=== PATIENT | female | born 1990 | race Caucasian/White ===

== ENCOUNTER 2016-10-15 09:10 | Inpatient (IN) | payer OTHER ==
--- NOTE | ~2016-10-15 | PN ---
Unit #: [id number] #: [id number] Patient: DIMA DOTY [id number] [facility] [address] [place] [address] [id number] I MR#: [id number] NAME: DIMA DOTY ROOM: P211 Age: 26 Sex: F Admission Date: 10/15/2016 : 1990 Attending Physician: Elyse Vyas M.D. Admitting Physician: Genna Cruz PROGRESS NOTES DATE OF SERVICE: 10/20/2016 SUBJECTIVE Ms. Doty is a 26-year-old white female, who was seen today and chart was reviewed, and case was discussed with the staff. She has been anxious, withdrawn, though has not shown any agitation, irritability, and has been cooperative with treatment recommendation and has been taking medications and tolerating them fairly well with no reported side effects. MENTAL STATUS EXAMINATION A young white female, who was casually dressed with fair personal hygiene, appears to be in no acute distress or discomfort. She was awake and alert on interaction with intact orientation. Her mood was anxious with a congruent affect. Speech was slow and goal directed. The patient denies any suicidal or homicidal ideations, and also denies any auditory or visual hallucinations. Her insight and judgment remain slightly impaired. TREATMENT PLAN We will continue on current medications and treatment protocol. We will monitor her response to medications and make further adjustments as needed. Dictated by... Genna Cruz/bebol TD: 10/22/2016 07:33 JOB #: [id number] [facility] PROGRESS NOTES Page 1 of 1 X Elyse Vyas MD PROGRESS NOTE
--- NOTE | ~2016-10-15 | DS ---
Unit #: [id number] #: [id number] Patient: [facility] [id number] [facility] [address] [place] [address] [id number] I MR#: [id number] NAME: DIMA DOTY ROOM: [facility] Age: 26 Sex: F Admission Date: 10/15/2016 : 1990 Discharge Date: 10/21/2016 Attending Physician: Elyse Vyas M.D. DISCHARGE SUMMARY IDENTIFYING DATA Ms. Doty is a 26-year-old single white female who is a resident of [place], [place] and is known to us from previous encounter, was transferred to us from [facility]. DISCHARGE DIAGNOSES Psychiatric: Major depressive disorder, recurrent, moderate, without psychotic features; opioid dependence, moderate and acute withdrawals; methamphetamine dependence, moderate; cannabis dependence, moderate. Medical: None. Stressors: Moderate psychosocial stressors. HISTORY OF PRESENT ILLNESS Please see initial psychiatric evaluation for details. PAST PSYCHIATRIC HISTORY Please see initial psychiatric evaluation for details. PAST MEDICAL HISTORY Please see initial psychiatric evaluation for details. HOSPITAL COURSE The patient was admitted to the adult psychiatric and chemical dependency unit at [facility] and was oriented to the hospital environment. Routine p.r.n. medications were initiated, and she was started on the detox protocol and was closely monitored. She was taking the medications regularly and was tolerating them fairly well, though even after she came out of the detox, she was struggling with depression and anxiety, and as such, Celexa and Vistaril were given to help with depression and anxiety with good tolerability and therapeutic response followed by which, it was decided that she will be discharged home and will continue treatment on an outpatient basis. DISCHARGE MEDICATIONS Celexa 20 mg a day for depression and Vistaril 50 mg t.i.d. for anxiety. DISCHARGE CONDITION Stable. PROGNOSIS Fair. Dictated by... Unit #: [id number] #: [id number] Patient: DIMA DOTY Genna Cruz/bebol TD: 10/21/2016 20:07 JOB #: [id number] DISCHARGE SUMMARY Page 1 of 1 X Elyse Vyas MD SUMMARY
--- NOTE | ~2016-10-15 | PN ---
Unit #: [id number] #: [id number] Patient: DIMA DOTY [id number] [facility] [address] [place] [address] [id number] MR#: [id number] NAME: DIMA DOTY ROOM: [facility] Age: 26 Sex: F Admission Date: 10/15/2016 : 1990 Attending Physician: Elyse Vyas M.D. Admitting Physician: Genna Cruz PROGRESS NOTES DATE OF SERVICE 10/17/2016 DISCUSSION Ms. Doty is a 26-year-old white female with substance abuse and mood disorder who was seen today. Chart was reviewed and case was discussed with the staff. She has been anxious, withdrawn, and rather seclusive to herself. Meanwhile, she has been cooperative with the treatment recommendations and has been taking the medications and tolerating them fairly well with no reported side effects. MENTAL STATUS EXAMINATION Young white female who is casually dressed with fair personal hygiene and appears to be in no acute distress or discomfort. She was awake and alert on interaction with intact orientation. Her mood is anxious with congruent affect. Speech is slow and goal-directed. She denies any suicidal or homicidal ideations and also denies any auditory or visual hallucinations. Her insight and judgment remain slightly impaired. TREATMENT PLAN 1. We will continue her on her current medications and treatment protocol. We will monitor her response to the medications and make further adjustments as needed. 2. We will continue to follow up. Dictated by... Elyse Vyas M.D. IAA/bzg TD: 10/18/2016 07:32 JOB #: [id number] Unit #: [id number] #: [id number] Patient: DIMA DOTY PROGRESS NOTES Page 1 of 1 X Elyse Vyas MD PROGRESS NOTE
--- NOTE | ~2016-10-15 | PA ---
Unit #: [id number] #: [id number] Patient: DIMA DOTY [id number] [facility] [address] [place] [address] [id number] I MR#: [id number] NAME: DIMA DOTY ROOM: P211 Age: 26 Sex: F Admission Date: 10/15/2016 : 1990 Date of Assessment: 10/15/2016 Attending Physician: Elyse Vyas M.D. Admitting Physician: Elyse Vyas M.D. PSYCHIATRIC ASSESSMENT DATE OF SERVICE 10/15/2016. IDENTIFYING DATA Ms. Doty is a 26-year-old single white female, who is a resident of [place], [place], and is known to us from previous encounter, was transferred to us from [facility] on a voluntary basis. CHIEF COMPLAINT "I've been having thoughts of hurting myself." HISTORY OF PRESENT ILLNESS Ms. Doty is a 26-year-old white female, who took herself to [facility] Emergency Room reporting that she having thoughts of hurting herself and that she continues to have thoughts of suicide after [facility] and reports currently having suicidal thoughts and reports that she plan to use drugs to kill herself. She also reports having no access to pain pills. At this time, reports having access to muscle relaxers and sleeping pills and reports attempting suicide in the past with a most recent attempt being last year. She reports also getting assessed due to detoxing off Adderall and reports that she has an addiction to Adderall for the past couple of years and reports taking about 3 pills a day and reports yesterday being the last use of pain pills and Adderall and reports the longest time of known use being 6 months which was also a couple of years ago. She does report increasing depression, anxiety, irritability, restlessness, feelings of hopelessness and helplessness, and suicidal ideations and was unable to contract for safety and was seen to be a danger to self and others and as such, recommendation for inpatient level of care was made. SUBSTANCE ABUSE HISTORY The patient reports history of cannabis, opioids, and amphetamine abuse, and has been using most of those drugs on regular basis. PAST PSYCHIATRIC HISTORY The patient has had history of inpatient chemical dependency and psychiatric treatment at [facility] and review of the medical records indicate currently she is not taking treatment program, is not seeing a psychiatrist, not taking any psychotropic medications. PAST MEDICAL HISTORY No acute or chronic medical illnesses. Unit #: [id number] #: [id number] Patient: DIMA DOTY ALLERGIES Sulfa drugs. PERSONAL AND SOCIAL HISTORY A 26-year-old white female, who reports that she is single, unemployed, and lives by herself and has poor social support system. MENTAL STATUS EXAMINATION Young white female who was casually dressed with fair personal hygiene, appears to be in no acute distress or discomfort. She was awake and alert on interaction with intact orientation to time, place, and person. Her mood was anxious and depressed with a congruent affect. Her speech was slow and restricted in content. Her thought processes were disorganized with some looseness of associations and suicidal ideations. Her insight and judgment remain significantly impaired. DIAGNOSTIC IMPRESSION Psychiatric: Major depressive disorder, recurrent, moderate, without psychotic features; opioid dependence, moderate and acute withdrawals; amphetamine dependence, moderate; cannabis dependence, moderate. Medical: None. Stressors: Moderate psychosocial stressors. TREATMENT PLAN 1. The patient has presented with history of substance abuse and mood disorder and has been decompensating and will need inpatient hospitalization for detoxification, safety, and stabilization. We will start her on detox protocol for opioids. We also recommend considering a trial of antidepressant therapy. 2. Supportive therapy was provided to the patient. 3. Safe, structured, and nourishing environment will be provided. ESTIMATED LENGTH OF STAY 5 to 7 days. ABILITY TO HELP SELF Limited. WILLINGNESS TO HELP SELF The patient appears to be willing to help self. STRENGTHS 1. Communicative. 2. Cooperative. PROBLEMS 1. Chronic dysphoric symptoms. 2. Chronic chemical dependency. 3. Poor social support system. DISCHARGE CRITERIA This will be contingent upon the patient's ability to show resolution of her depression and anxiety and her ability to stay safe to herself, particularly after discharge from the hospital. Dictated by... Unit #: [id number] #: [id number] Patient: DIMA DOTY Genna Cruz/zoe TD: 10/16/2016 07:49 JOB #: [id number] PSYCHIATRIC ASSESSMENT Page 1 of 1 X Elyse Vyas MD PSYCHIATRIC ASSESSMENT
--- NOTE | ~2016-10-15 | HP ---
Unit #: [id number] #: [id number] Patient: DIMA CEBALLOS [id number] [place] [address] [id number] I MR#: [id number] NAME: DIMA CEBALLOS ROOM: P211 Age: 26 Sex: F Admission Date: 10/15/2016 : 1990 Attending Physician: Elyse Vyas M.D. Admitting Physician: Elyse Vyas M.D. HISTORY AND PHYSICAL HISTORY OF PRESENT ILLNESS Dima is a 26 year old admitted to [address] [place] [address] because of her polysubstance abuse which includes opioids, amphetamines and benzodiazepines. She has a history of IV drug use. PAST MEDICAL HISTORY 1. Long history of polysubstance abuse to include IV drugs. 2. History of anemia. 3. History of eclampsia. PAST SURGICAL HISTORY x2. ALLERGIES Sulfa. SOCIAL HISTORY Smokes 1 pack per day. Denies alcohol. Admits to a long history of polysubstance abuse to include IV heroin. FAMILY HISTORY Medically noncontributory. REVIEW OF SYSTEMS CONSTITUTIONAL: No fever or chills. HEENT: Denies any sore throat, ear pain or runny nose. CARDIOVASCULAR: Denies chest pain, irregular heart rhythm or palpitations. CHEST: Denies shortness of breath or cough. No hemoptysis. GASTROINTESTINAL: Denies nausea, vomiting, diarrhea or chronic constipation. ENDOCRINE: Denies history of increased thirst or urination. No recent significant weight loss or gain. GENITOURINARY: Denies dysuria, frequency, or hematuria. SKIN: Denies any rashes. HEMATOLOGIC: Denies history of increased bleeding or bruising. MUSCULOSKELETAL: Denies any hot, swollen joints. No generalized muscle pain. NEUROLOGIC: Denies problems with vision or speech. No frequent, severe headaches. No numbness, tingling or weakness in any extremities. Denies loss of bladder or bowel control. CURRENT MEDICATIONS Detox protocol. Unit #: [id number] #: [id number] Patient: DIMA CEBALLOS PHYSICAL EXAMINATION GENERAL: Alert, well-nourished, in no apparent distress. VITAL SIGNS: Blood pressure 100/70, heart rate 80, respirations 16, temperature 98.6. WEIGHT: 135. HEIGHT: 5 feet 3 inches. SKIN: Warm and dry without rash or lesion. HEENT: Normocephalic. TMs not viewed. Oral and nasal passages clear. Conjunctivae clear. PERRLA. EOMs intact. NECK: Supple without lymphadenopathy or thyromegaly. HEART: Regular rate and rhythm without murmur. LUNGS: Clear. ABDOMEN: Soft, nontender. : Not done. EXTREMITIES: No evidence of cyanosis, clubbing or edema. Moves all without focal deficit. NEUROLOGICAL: Grossly within normal limits. Cranial Nerves: II: Visual mobley are intact. III, IV AND : Extraocular movements are intact. Pupils are equal, round and reactive to light. V: Facial sensation is grossly normal. VII: Facial movements and expression are normal. VIII: Auditory acuity grossly intact. IX, X: Uvula is midline. Phonation is normal. XI: Patient shrugs shoulders and turns head normally. XII: Tongue protrudes in the midline. Sensory and Motor Function: Sensory and motor sensation is grossly normal. Motor: moves all extremities well. Coordination: Gait is normal. Deep Tendon Reflexes: Intact. IMPRESSION Psychiatric admission. RECOMMENDATIONS PSYCHIATRIC: Per psychiatrist. MEDICAL: See no contraindications to participate in facility's activities. MEDICAL PROGNOSIS Good. MEDICAL CONDITION Stable. Dictated by... Katherine Wetzel PTamiaATamia-Cristela. for Genna Gomes/leanna TD: 10/15/2016 23:12 JOB #: [id number] Unit #: [id number] #: [id number] Patient: DIMA CEBALLOS HISTORY AND PHYSICAL Page 1 of 1 X Katherine Wetzel HISTORY AND PHYSICAL
--- NOTE | ~2016-10-15 | PN ---
Unit #: [id number] #: [id number] Patient: DIMA DOTY [id number] [facility] [address] [place] [address] [id number] MR#: [id number] NAME: DIMA DOTY ROOM: P211 Age: 26 Sex: F Admission Date: 10/15/2016 : 1990 Attending Physician: Elyse Vyas M.D. Admitting Physician: Genna Cruz PROGRESS NOTES DATE OF SERVICE: 10/19/2016 SUBJECTIVE Ms. Doty is a 26-year-old white female, who was seen today and chart was reviewed and the case was discussed with the staff. She was seen to be anxious, withdrawn, and seclusive to herself, laying in her bed and reports some persistent and significant debilitating anxiety. Meanwhile, she has been polite and pleasant and cooperative with the treatment recommendations. MENTAL STATUS EXAMINATION Young white female, who was casually dressed with fair personal hygiene, appears to be in no acute distress or discomfort. She was awake and alert on interaction with intact orientation. Her mood was anxious with a congruent affect. She denies any suicidal or homicidal ideations and also denies any auditory or visual hallucinations. Her insight and judgment remain slightly impaired. TREATMENT PLAN 1. We will continue her on her current medications. We will prescribe her Vistaril 50 mg t.i.d. to help with the anxiety. We will monitor response and make further adjustments as needed. 2. We will continue to follow up. Dictated by... Genna Cruz/zoe TD: 10/19/2016 18:21 JOB #: [id number] Unit #: [id number] #: [id number] Patient: DIMA DOTY PROGRESS NOTES Page 1 of 1 X Elyse Vyas MD PROGRESS NOTE
--- NOTE | ~2016-10-15 | PN ---
Unit #: [id number] #: [id number] Patient: DIMA DOTY [id number] [facility] [address] [place] [address] [id number] MR#: [id number] NAME: DIMA DOTY ROOM: P211 Age: 26 Sex: F Admission Date: 10/15/2016 : 1990 Attending Physician: Elyse Vyas M.D. Admitting Physician: Genna Cruz PROGRESS NOTES DATE 10/16/2016 DISCUSSION Ms. Doty is a 26-year-old white female who was seen today and chart was reviewed and case was discussed with the staff. She has been anxious, withdrawn and rather seclusive to herself. Meanwhile, she has been cooperative with treatment recommendations as she has been taking the medications and tolerating them fairly well with no reported side effects. MENTAL STATUS EXAMINATION Young white female who was casually dressed with fair personal hygiene, appears to be in no acute distress or discomfort. She was awake and alert on interaction with intact orientation. Her mood was anxious and depressed with congruent affect. Her speech was slow and goal-directed. She denies any suicidal or homicidal ideations. Her insight and judgement remains slightly impaired. TREATMENT PLAN 1. We will continue her on her current medications and treatment protocol. We will monitor her response to the medication and make further adjustments as needed. 2. We will continue to follow up. Dictated by... Genna Cruz/stanislav TD: 10/17/2016 05:02 JOB #: [id number] Unit #: [id number] #: [id number] Patient: DIMA DOTY HERNANJESUS PROGRESS NOTES Page 1 of 1 X Elyse Vyas MD X PROGRESS NOTE
--- NOTE | ~2016-10-15 | PN ---
Unit #: [id number] #: [id number] Patient: DIMA DOTY [id number] [facility] [address] [place] [address] [id number] MR#: [id number] NAME: DIMA DOTY ROOM: [facility] Age: 26 Sex: F Admission Date: 10/15/2016 : 1990 Attending Physician: Elyse Vyas M.D. Admitting Physician: Genna Cruz PROGRESS NOTES DATE 10/18/2016 DISCUSSION Ms. Doty is a 26-year-old white female who was seen today and chart was reviewed and case was discussed with the staff. She has been anxious, withdrawn though has not shown any agitation, irritability or behavioral problems and has been cooperative with treatment recommendations and has been taking medications and tolerating them fairly well with no reported side effects. MENTAL STATUS EXAMINATION Young white female who was casually dressed with fair personal hygiene and appears to be in no acute distress or discomfort. She was awake and alert with intact orientation. Her mood was anxious with congruent affect. She denies any suicidal or homicidal ideations. Her insight and judgement remains slightly impaired. TREATMENT PLAN 1. Will continue on current treatment protocol. Will monitor her response and make further adjustments as needed. 2. Will continue to follow up. Dictated by... Genna Cruz/leanna TD: 10/18/2016 18:05 JOB #: [id number] Unit #: [id number] #: [id number] Patient: DIMA DOTY PROGRESS NOTES Page 1 of 1 X Elyse Vyas MD PROGRESS NOTE
[~2016-10-15 09:10] MED LIST: BACTRIM DS TABL1 TA1 PO; HYCODAN60 ML 5MG/ PO; PREDNISONE10 MG PO; ROBAXIN 750750 MG PO; SEROQUEL PO; VOLTAREN75 MG PO; ZITHROMAX1 G/PKT PO
[2016-10-16 09:40] LABS: BASOPHIL# 0.1 X10e3 (0-0.3); BASOPHIL% 0.9 % (0-2.5); EOSINOPHIL# 0.3 X10e3 (0-0.7); EOSINOPHIL% 4.9 % (0.0-7.0); HEMATOCRIT 35.7 % (35.0-45.0); HEMOGLOBIN 11.9 gm/dL (12.0-16.0); LYMPHOCYTE# 1.9 X10e3 (1.0-3.5); LYMPHOCYTE% 28.9 % (17.0-45.0); MEAN CELL VOLUME 91.3 FL (83-96); MEAN CORPUSCULAR HEMOGLOBIN 30.5 PG (28-34); MEAN CORPUSCULAR HGB CONC 33.4 g/dL (30-36); MEAN PLATELET VOLUME 8.7 FL (6.5-11.5); MONOCYTE# 0.3 X10e3 (0-1.0); NEUTROPHIL% 60.3 % (40-75); PLATELET COUNT 237 X10e3 (140-420); RED BLOOD COUNT 3.91 X10e (3.90-5.30); RED CELL DISTRIBUTION WIDTH 13.7 % (11.0-15.5); WHITE BLOOD COUNT 6.6 X10e3 (4.0-10.5)
[2016-10-16 09:46] LABS: DIFF IND NO
[2016-10-16 10:13] LABS: THYROID STIMULATING HORMONE 0.36 uIU/ml (0.34-5.60)
[2016-10-16 10:15] LABS: ALBUMIN SERUM 3.5 g/dL (3.5-5.0); ALKALINE PHOSPHATASE 53 U/L (32-92); ALT (SGPT) 35 U/L (10-40); AST (SGOT) 26 U/L (10-42); BILIRUBIN,TOTAL 0.4 mg/dL (0.2-2.0); BLOOD UREA NITROGEN 11 mg/dL (9-23); CALCIUM SERUM 8.8 mg/dL (8.4-10.2); CARBON DIOXIDE 25 mmol/L (22-31); CHLORIDE 107 mmol/L (100-111); CREATININE SERUM 0.5 mg/dL (0.6-1.4); GLOM FILT RATE Estimated ABOVE60 mL/min (>60); GLUCOSE FASTING 123 mg/dL (70-110); POTASSIUM 3.9 mmol/L (3.5-5.1); SODIUM 138 mmol/L (135-145)
[2016-10-16 10:20] LABS: FREE THYROXIN (T4) 0.94 ng/dL (0.58-1.64)
[2016-10-17 09:58] LABS: URINE APPEARANCE CLEAR; URINE BILIRUBIN NEG (NEG); URINE BLOOD NEG (NEG); URINE COLOR YELLOW; URINE GLUCOSE NEG (NEG); URINE KETONE NEG (NEG); URINE LEUKOCYTE ESTERASE NEG (NEG); URINE NITRATE NEG (NEG); URINE PH 6.5 (5-8); URINE PROTEIN NEG (NEG); URINE SPECIFIC GRAVITY 1.017 (1.003-1.035); URINE UROBILINOGEN 0.2 MG/DL (NEG)
[2016-10-17 10:44] LABS: AMPHETAMINE NEG (NEG); BARBITURATES NEG (NEG); BENZODIAZEPINES NEG (NEG); COCAINE NEG (NEG); MARIJUANA POS (NEG); OPIATES NEG (NEG); TRICYCLIC ANTIDEPRESSANTS POS (NEG); U METHADONE NEG (NEG)
== END 2016-10-21 09:17 | DRG 885 ==
LOC: POF 09:10 → P2S 10:31
PROVIDERS: Psychiatry & Neurology Psychiatry
PROC: HZ2ZZZZ Detoxification Services for Substance Abuse Treatment (ICD-10-PCS; principal; 2016-10-15)
DX: F33.1 Major depressive disorder, recurrent, moderate (principal); F15.20 Other stimulant dependence, uncomplicated; F11.23 Opioid dependence with withdrawal; F12.10 Cannabis abuse, uncomplicated; Z56.0 Unemployment, unspecified; Z88.2 Allergy status to sulfonamides
CPT/HCPCS: 80053; 80307; 81003; 84439; 84443; 84703; 85025; 86592